=== PATIENT | female | born 1935 ===

== ENCOUNTER 2020-10-27 20:36 | Emergency (ER) | payer MEDICARE, OTHER ==
[~2020-10-27] VITALS: Ht 154.9 cm; Wt 45.4 kg
[2020-10-27] MEDS ORDERED: ACETAMINOPHEN 500 MG TABLET PO ONE (21:30)
[2020-10-27] MEDS ORDERED: ACETAMINOPHEN 500 MG TABLET ONE (21:34)
--- NOTE | 2020-10-27 21:38 | NUR ---
patient brought in by EMS with complaints of being unable to move left toes. patient has sensation in toes and is able to move foot. patient has known dementia and HTN.
[2020-10-27] MEDS ORDERED: PLEASE ENTER ALLERGIES MC SCH (22:00)
[2020-10-27 22:20] VITALS: BP 181/70
--- NOTE | 2020-10-27 23:38 | NUR ---
patient ambulated without assistance. Rocker boot also placed on patient
== END 2020-10-27 23:46 | disposition home or self-care (01) ==
LOC: ED 21:00
DX: S92.415A Nondisplaced fracture of proximal phalanx of left great toe, initial encounter for closed fracture (principal); R41.82 Altered mental status, unspecified; I10 Essential (primary) hypertension; X58.XXXA Exposure to other specified factors, initial encounter; Y93.89 Activity, other specified; Y92.89 Other specified places as the place of occurrence of the external cause; Y99.8 Other external cause status
CPT/HCPCS: 99283